=== PATIENT | male | born 1955 | race Caucasian/White ===

== ENCOUNTER 2018-05-04 22:35 | Inpatient (IN) | payer MEDICARE, MEDICAID ==
[~2018-05-04] VITALS: Ht 190.5 cm; Wt 110.6 kg
[2018-05-04 23:31] LABS: HEMATOCRIT 26.8 % (42.0-54.0); HEMOGLOBIN 8.8 g/dL (13.5-17.5); LYMPHOCYTES 7.8 % (15-50); MCH 30.6 pg (26.0-34.0); MCHC 32.8 g/dL (31.0-37.0); MCV 93.1 fL (80.0-100.0); MEAN PLATELET VOLUME 9.9 fL (7.4-10.4); NEUTROPHILS 82.7 % (40-80); PLATELET COUNT 260 10x3/uL (130-400); RBC 2.88 10x6/uL (4.20-6.10); RDW 13.6 % (11.5-14.5); WBC 10.4 10x3/uL (4.8-10.8)
[2018-05-04 23:51] LABS: ANION GAP 20.9 mmol/L (8-16); CALCIUM 7.4 mg/dL (8.5-10.1); CARBON DIOXIDE 24.5 mmol/L (21.0-32.0); CREATININE - SERUM 13.2 mg/dL (0.6-1.3); MAGNESIUM - SERUM 2.3 mg/dL (1.8-2.4); POTASSIUM - SERUM 5.4 mmol/L (3.5-5.1); TROPONIN-I 0.047 ng/mL (0.000-0.060)
[2018-05-05] VITALS (21 sets, daily range): BP systolic 139–192; BP diastolic 68–111; BMI 29.9
--- NOTE | 2018-05-05 00:09 | NUR ---
FSBS @ 2737, 343 DOCTOR NOTIFIED.
--- NOTE | 2018-05-05 00:45 | NUR ---
REPOSITIONED FOR COMFORT, TOLERATED WELL.
--- NOTE | 2018-05-05 04:00 | NUR ---
CATAPRES 0.1MG PO GIVEN, BP 195/85.
--- NOTE | 2018-05-05 04:45 | NUR ---
BP 190/85, HR 76.
--- NOTE | 2018-05-05 05:50 | NUR ---
PT RECEIVED TO UNIT VIA BED FROM ER. PT TRANSFERRED SELF TO ICU BED. CONNECTED TO STANDARD ICU PROTOCOL WITH ALL ALARMS SET VERIFED AND AUDIBLE AT NURSES STATION. PT NOTED TO HAVE LEFT ARM FISTULA, LEFT ARM RESERVE. RIGHT UPPER CHEST HEALING INCISION WITH RECENT PACEMAKER/DEFIB PLACED. LEFT LATERAL CHEST WITH OLD CT SITES WITH SUTURES IN PLACE. NOTE VERY LITTLE AIR MOVEMENT HEARD ON LEFT MID/LOWER LOBE. PT ON 4L N/C. SPO2 96-97%. PT NOTED TO HAVE HTN WILL TREAT ORDERED. SEE MAR. BED IN LOW POSITION. CALL LIGHT GIVEN TO PT AND UNIT ORIENTATION DONE SON AT BEDSIDE SECURITY WORD ESTABLISHED. QUESTIONS ANSWERED. PT STATED HE WOULD HAVE FAMILY CALL WITH LIST OF HOME MEDS LATER IN DAY. PT VERY AGREABLE AND COOPERATIVE.
--- NOTE | 2018-05-05 07:00 | NUR ---
ASSESSMENT COMPLETE PER FLOWSHEET. VOICES NO CO AT TIME.
[2018-05-05 07:22] LABS: BASOPHILS 0.2 % (0-2); EOSINOPHILS 3.2 % (0-7); HEMATOCRIT 27.2 % (42.0-54.0); HEMOGLOBIN 8.7 g/dL (13.5-17.5); IMMATURE GRANULOCYTES 0.3 % (0-5); LYMPHOCYTES 5.3 % (15-50); MCH 29.9 pg (26.0-34.0); MCV 93.5 fL (80.0-100.0); MEAN PLATELET VOLUME 10.6 fL (7.4-10.4); MONOCYTES 3.5 % (2-11); NEUTROPHILS 87.5 % (40-80); PLATELET COUNT 292 10x3/uL (130-400); RBC 2.91 10x6/uL (4.20-6.10); RDW 13.6 % (11.5-14.5)
[2018-05-05 08:05] LABS: ALBUMIN 2.8 g/dL (3.4-5.0); ALKALINE PHOSPHATASE 158 U/L (46-116); ALT (SGPT) 40 U/L (10-68); BILIRUBIN - TOTAL 0.52 mg/dL (0.2-1.3); CALCIUM 7.3 mg/dL (8.5-10.1); CARBON DIOXIDE 26.3 mmol/L (21.0-32.0); CHLORIDE - SERUM 98 mmol/L (98-107); CKMB 3.1 U/L (0.0-3.6); CREATINE KINASE 232 UL (21-232); CREATININE - SERUM 13.5 mg/dL (0.6-1.3); MAGNESIUM - SERUM 2.4 mg/dL (1.8-2.4); PROTEIN - SERUM 6.8 g/dL (6.4-8.2); SODIUM 139 mmol/L (136-145); UREA NITROGEN 81 mg/dL (7-18); eGFR NON AFRICAN AMERICAN 4 mL/min (90-120)
[2018-05-05 08:46] LABS: CALC OSMOLALITY 303 mosm/kg (275-300); GLUCOSE 139 mg/dL (74-106)
[2018-05-05 08:48] LABS: POTASSIUM - SERUM 6.3 mmol/L (3.5-5.1); TROPONIN-I 0.086 ng/mL (0.000-0.060)
--- NOTE | 2018-05-05 11:00 | NUR ---
CVL CONSENT OBTAINED.
--- NOTE | 2018-05-05 14:45 | NUR ---
JOYCE SIMONS AT BEDSIDE. CVL PLACED.
--- NOTE | 2018-05-05 19:00 | NUR ---
REPORT RECEIVED CARE ASSUMED INITIAL SHIFT ASSESSMENT COMPLETED SEE FLOWSHEET. PT CONTINUES TO BE MONITORED PER STANDARD ICU PROTOCOL WITH ALL ALARMS SET, VERIFIED AND AUDIBLE AT NURSES STATION. NOTE B/P ELEVATED. SEE MAR FOR MEDICATION DOCUMENTATION. BED IN LOW POSTION CALL LIGHT IN REACH. PT ABLE TO MAKE NEEDS KNOWN IVF AND IV LINES ARE CURRENT AND APPROPRIATLY LABELED. PT AWAKE AND VISITING FREELY WITH SON AT BEDSIDE, ORIENTATED X 4 SPEECH CLEAR.
--- NOTE | 2018-05-05 20:00 | NUR ---
PT SLEEPING SOUNDLY SNORING AND MOUTH BREATHING. SPO2 FELL TO 78% AND REMAINED THERE. INCREASED O2 TO 6L WITH ONLY SLIGHT IMPROVEMENT. PT AWAKEN AND IMMEDIATELY SPO2 98%. RT NOTIFIED OF NEED FOR HIFLOW N/C DUE TO THE MOUTH BREATHING TENDINCIES OF PT. RT BROUGHT AND PT PLACED ON THIS WITH POSITIVE RESULTS
--- NOTE | 2018-05-05 21:12 | MORECARE ---
CASE MANAGEMENT DISCHARGE SUMMARY PATIENT: TERESA MARTINEZ UNIT: [id number] ADM DATE: 05/05/18 AGE: 63 : 55 SEX: M ROOM/BED: D.2306 AUTHOR: MARTA HUTCHINS PHYSICIAN: REFERRING PHYSICIAN: MICKIE BEE MD DATE OF SERVICE: 05/05/18 Discharge Plan Patient Name: TERESA MARTINEZ [facility] [facility] 1955 Planned Disposition: Home Anticipated Discharge Date: Discharge Date: Expected LOS: Initial Reviewer: [email or web address] Initial Review Date: 05/05/2018 Generated: 05/05/18 10:12 pm Patient Name: TERESA MARTINEZ Page 78146 at 2111 All edits/amendments must be made on the electronic document DICTATION DATE: 05/05/182110 MARKETING SERVICES VICE PRESIDENT: JENNY 05/05/182110 RPT#: [id number] DC DATE: STATUS: ADM IN [facility] [address] [place] [address] END OF REPORT
--- NOTE | 2018-05-05 21:18 | MORECARE ---
CASE MANAGEMENT DISCHARGE SUMMARY PATIENT: TERESA MARTINEZ UNIT: [id number] ADM DATE: 05/05/18 AGE: 63 : 55 SEX: M ROOM/BED: D.2306 AUTHOR: MARTA HUTCHINS PHYSICIAN: REFERRING PHYSICIAN: MICKIE BEE MD DATE OF SERVICE: 05/05/18 Discharge Plan Patient Name: TERESA MARTINEZ [facility] : 1955 Planned Disposition: Home Anticipated Discharge Date: Discharge Date: Expected LOS: Initial Reviewer: [email or web address] Initial Review Date: 05/05/2018 Generated: 05/05/18 10:18 pm DCPIA - Discharge Planning Initial Assessment Updated by [email or web address]: Michelle Yuen on 05/05/18 9:13 pm * Is the patient Alert and Oriented? Yes * How many steps to enter\exit or inside your home? * PCP Dr Coley * Pharmacy [facility] * Preadmission Environment Home with Family * ADLs Independent * Equipment Walker * Other Equipment CANE * List name and contact numbers for known caregivers / representatives who currently or will assist patient after discharge: TERESA MARTINEZ JR - SON - [phone] * Verbal permission to speak to the caregivers and representatives has been obtained from the patient. Yes * Community resources currently utilized Other * Please name any agencies selected above. [facility] * Additional services required to return to the preadmission environment? No * Can the patient safely return to the preadmission environment? Yes * Has this patient been hospitalized within the prior 30 days at any hospital? Yes Last DP export: 05/05/18 8:12 p Patient Name: TERESA MARTINEZ Page 69903 at 2118 All edits/amendments must be made on the electronic document DICTATION DATE: 05/05/182117 INSURANCE COMPLIANCE ANALYST: JENNY 05/05/182117 RPT#: [id number] DC DATE: STATUS: ADM IN [facility] [address] [place] [address] END OF REPORT
--- NOTE | 2018-05-05 21:25 | MORECARE ---
CASE MANAGEMENT DISCHARGE SUMMARY PATIENT: TERESA MARTINEZ UNIT: [id number] ADM DATE: 05/05/18 AGE: 63 : 55 SEX: M ROOM/BED: D.2306 AUTHOR: LISET,DOC PHYSICIAN: REFERRING PHYSICIAN: MICKIE BEE MD DATE OF SERVICE: 05/05/18 Discharge Plan Patient Name: TERESA MARTINEZ Facility: [facility]:[place] : 1955 Planned Disposition: Home Anticipated Discharge Date: Discharge Date: Expected LOS: Initial Reviewer: [email or web address] Initial Review Date: 05/05/2018 Generated: 05/05/18 10:25 pm Comments DCP- Discharge Planning Updated by [email or web address]: Michelle Yuen on 05/05/18 8:[address] Patient Name: TERESA MARTINEZ Admission Status: ER Accout number: [id number] Admission Date: 05-05-2018 : 1955 Admission Diagnosis: Attending: MICKIE BEE Current LOS: 1 Anticipated DC Date: Planned Disposition: Home Primary Insurance: MEDICARE A & B Discharge Planning Comments: CM met with patient and son at bedside after obtaining verbal consent. Patient states he plans on returning home after discharge with his family. Patient states he will have family transport him home via private vehicle. Patient has dialysis MWF in [place] @ 6am. Patient's son inquired about home 02. CM explained that patients would have to qualify according to values. Patient worried about cost. CM instructed she check on cost if he qualified. Patient denies any discharge needs at this time. CM will continue to follow and assist as needed for discharge planning / needs. Oxide Furnace Tender: Michelle Yuen DCPIA - Discharge Planning Initial Assessment Updated by [email or web address]: Michelle Yuen on 05/05/18 9:13 pm * Is the patient Alert and Oriented? Yes * How many steps to enter\exit or inside your home? * PCP Dr Coley * Pharmacy [facility] * Preadmission Environment Home with Family * ADLs Independent * Equipment Walker * Other Equipment CANE * List name and contact numbers for known caregivers / representatives who currently or will assist patient after discharge: TERESA MARTINEZ - SON - [phone] * Verbal permission to speak to the caregivers and representatives has been obtained from the patient. Yes * Community resources currently utilized Other * Please name any agencies selected above. [facility] * Additional services required to return to the preadmission environment? No * Can the patient safely return to the preadmission environment? Yes * Has this patient been hospitalized within the prior 30 days at any hospital? Yes Last DP export: 05/05/18 8:18 p Patient Name: TERESA MARTINEZ Page 37490 at 212 All edits/amendments must be made on the electronic document DICTATION DATE: 05/05/182124 FURNACE CLERK: JENNY 05/05/182124 RPT#: [id number] DC DATE: STATUS: ADM IN [facility] [address] [place] [address] END OF REPORT
--- NOTE | 2018-05-05 23:00 | NUR ---
SHIFT REASSESSEMT COMPLETED SEE FLOWSHEET. NO SIGNIFICANT CHANGES. PT HAS BEEN SLEEPING WELL TONIGHT.
[2018-05-06] VITALS (17 sets, daily range): BP systolic 153–197; BP diastolic 73–94; Ht 190.5 cm; Wt 110.6 kg
--- NOTE | 2018-05-06 01:00 | NUR ---
NO CHANGES. RESP REG AND NONLABORED
--- NOTE | 2018-05-06 03:00 | NUR ---
SHIFT ASSESSMENT COMPLETED SEE FLOWSHEET. NO SIGNIFICANT CHANGE. PT HAS BEEN SLEEPING WELL
--- NOTE | 2018-05-06 05:00 | NUR ---
PT SLEEPING EASILY AWAKEN. NO C/O DENIES NEEDS
[2018-05-06 06:47] LABS: BASOPHILS 0.3 % (0-2); EOSINOPHILS 10.1 % (0-7); HEMATOCRIT 27.8 % (42.0-54.0); HEMOGLOBIN 8.7 g/dL (13.5-17.5); IMMATURE GRANULOCYTES 0.3 % (0-5); LYMPHOCYTES 4.3 % (15-50); MCH 29.6 pg (26.0-34.0); MCHC 31.3 g/dL (31.0-37.0); MCV 94.6 fL (80.0-100.0); MEAN PLATELET VOLUME 10.6 fL (7.4-10.4); MONOCYTES 5.2 % (2-11); NEUTROPHILS 79.8 % (40-80); PLATELET COUNT 264 10x3/uL (130-400); RBC 2.94 10x6/uL (4.20-6.10); RDW 13.8 % (11.5-14.5); WBC 14.8 10x3/uL (4.8-10.8)
[2018-05-06 07:00] LABS: ALBUMIN 2.5 g/dL (3.4-5.0); BILIRUBIN - TOTAL 0.47 mg/dL (0.2-1.3); CALCIUM 7.2 mg/dL (8.5-10.1); CARBON DIOXIDE 29.6 mmol/L (21.0-32.0); CREATININE - SERUM 11.2 mg/dL (0.6-1.3); PROTEIN - SERUM 6.5 g/dL (6.4-8.2)
--- NOTE | 2018-05-06 07:00 | NUR ---
ASSESSMENT COMPLETE PER FLOWSHEET. VOICES NO CO AT TIME.
[2018-05-06 07:01] LABS: ANION GAP 16.6 mmol/L (8-16); POTASSIUM - SERUM 5.2 mmol/L (3.5-5.1)
--- NOTE | 2018-05-06 09:16 | NUR ---
Nutrition follow-up: Diet: Renal ADA PO intake good Labs reviewed Wt: 236# RDN following.
--- NOTE | 2018-05-06 15:00 | NUR ---
REPORT CALLED TO JANAE LUIS. TRANSFER IN .
--- NOTE | 2018-05-06 19:32 | NUR ---
RESUMIMG PT CARE. PT IS LAYING IN BED WITH EYES CLOSED RESTING COMFORTABLY. FAMILY AT BEDSIDE. BED IN LOW POSITION WITH CALL LIGHT IN REACH. SIDE RAILS UP X2. WILL CONTINUE TO MONITOR PT AND FOLLOW PLAN OF CARE.
[2018-05-07] VITALS: BP 139/69
[2018-05-07 04:00] VITALS: BP 143/68
--- NOTE | 2018-05-07 04:00 | NUR ---
SKID ROAD WORKER AT BEDSIDE TO OBTAIN VITALS, CALL LIGHT IN REACH. WILL CONTINUE WITH PLAN OF CARE.
[2018-05-07 05:52] LABS: HEMATOCRIT 24.7 % (42.0-54.0); HEMOGLOBIN 7.9 g/dL (13.5-17.5); MCH 30.2 pg (26.0-34.0); MCV 94.3 fL (80.0-100.0); MEAN PLATELET VOLUME 9.7 fL (7.4-10.4); PLATELET COUNT 229 10x3/uL (130-400); RBC 2.62 10x6/uL (4.20-6.10); RDW 13.7 % (11.5-14.5); WBC 9.1 10x3/uL (4.8-10.8)
[2018-05-07 06:04] LABS: ANION GAP 15.9 mmol/L (8-16); CARBON DIOXIDE 30.2 mmol/L (21.0-32.0); CREATININE - SERUM 12.5 mg/dL (0.6-1.3); PHOSPHOROUS 7.8 mg/dL (2.5-4.9); POTASSIUM - SERUM 5.1 mmol/L (3.5-5.1)
[2018-05-07 06:06] LABS: CALCIUM 6.7 mg/dL (8.5-10.1)
--- NOTE | 2018-05-07 07:47 | MORECARE ---
CASE MANAGEMENT DISCHARGE SUMMARY PATIENT: TERESA MARTINEZ UNIT: [id number] ADM DATE: 05/05/18 AGE: 63 : 55 SEX: M ROOM/BED: D.2104 AUTHOR: LISET,DOC PHYSICIAN: REFERRING PHYSICIAN: MICKIE BEE MD DATE OF SERVICE: 05/07/18 Discharge Plan Patient Name: TERESA MARTINEZ Facility[facility]:[place] : 1955 Planned Disposition: Home Anticipated Discharge Date: Discharge Date: Expected LOS: Initial Reviewer: [email or web address] Initial Review Date: 05/05/2018 Generated: 05/07/18 8:47 am Comments DCP- Discharge Planning Updated by [email or web address]: Michelle Yuen on 05/05/18 8:[address] Patient Name: TERESA MARTINEZ Admission Status: ER Accout number: [id number] Admission Date: 05-05-2018 : 1955 Admission Diagnosis: Attending: MICKIE BEE Current LOS: 1 Anticipated DC Date: Planned Disposition: Home Primary Insurance: MEDICARE A & B Discharge Planning Comments: CM met with patient and son at bedside after obtaining verbal consent. Patient states he plans on returning home after discharge with his family. Patient states he will have family transport him home via private vehicle. Patient has dialysis MWF in [place] @ 6am. Patient's son inquired about home 02. CM explained that patients would have to qualify according to values. Patient worried about cost. CM instructed she check on cost if he qualified. Patient denies any discharge needs at this time. CM will continue to follow and assist as needed for discharge planning / needs. Form Setter: Michelle Yuen DCPIA - Discharge Planning Initial Assessment Updated by [email or web address]: Michelle Yuen on 05/05/18 9:13 pm * Is the patient Alert and Oriented? Yes * How many steps to enter\exit or inside your home? * PCP Dr Coley * Pharmacy [facility] * Preadmission Environment Home with Family * ADLs Independent * Equipment Walker * Other Equipment CANE * List name and contact numbers for known caregivers / representatives who currently or will assist patient after discharge: TERESA MARTINEZ - SON - [phone] * Verbal permission to speak to the caregivers and representatives has been obtained from the patient. Yes * Community resources currently utilized Other * Please name any agencies selected above. [facility] * Additional services required to return to the preadmission environment? No * Can the patient safely return to the preadmission environment? Yes * Has this patient been hospitalized within the prior 30 days at any hospital? Yes Last DP export: 05/05/18 8:25 p Patient Name: TERESA MARTINEZ Page 80993 at 0747 All edits/amendments must be made on the electronic document DICTATION DATE: 05/07/18746 SVP INNOVATION PARTNERSHIPS: JENNY 05/07/18746 RPT#: [id number] DC DATE: STATUS: ADM IN [facility] [address] [place] [address] END OF REPORT
[2018-05-07 07:53] LABS: EOSINOPHILS 10 % (0-7); LYMPHOCYTES 6 % (15-50); MONOCYTES 3 % (2-11); NEUTROPHILS 79 % (40-80); PLATELET ESTIMATE NORMAL
[2018-05-07 08:18] VITALS: BP 153/77
--- NOTE | 2018-05-07 08:28 | NUR ---
PT SITTING UP IN BED. REMOVED SUTURES FROM PREVIOUS, "CHEST TUBE INSERTION". SMALL RED AREA AROUND SITE NOTED. SCANT DRAINAGE. SON AT BEDSIDE. NO S/S OF ACUTE DISTRESS. CL IN PLACE.
--- NOTE | 2018-05-07 08:31 | MORECARE ---
CASE MANAGEMENT DISCHARGE SUMMARY PATIENT: TERESA MARTINEZ UNIT: [id number] ADM DATE: 05/05/18 AGE: 63 : 55 SEX: M ROOM/BED: D.2104 AUTHOR: LISETDOC PHYSICIAN: REFERRING PHYSICIAN: MICKIE BEE MD DATE OF SERVICE: 05/07/18 Discharge Plan Patient Name: TERESA MARTINEZ Facility: [facility]:[place] : 1955 Planned Disposition: Home Anticipated Discharge Date: 05/07/18 Discharge Date: Expected LOS: 2 Initial Reviewer: [email or web address] Initial Review Date: 05/05/2018 Generated: 05/07/18 9:31 am Comments DCP- Discharge Planning Updated by [email or web address]: Michael Samuels on 05/07/18 7:[address] Patient Name: TERESA MARTINEZ Encounter No: [id number] : 1955 Primary Insurance: MEDICARE A & B Anticipated DC Date: 05-07-2018 Planned Disposition: Home DCP follow-up note: CM MET WITH PT IN ROOM TO DISCUSS DISCHARGE NEEDS AND PLANNING. CM DISCUSSED AVAILABILITY OF HOME HEALTH, REHAB SERVICES AND MEDICAL EQUIPMENT. PT DENIES DISCHARGE NEEDS. SON HERE TO TRANSPORT HOME AT DISCHARGE. IMPORTANT MESSAGE FROM MEDICARE PROVIDED AND EXPLAINED. JEAN PIERRE Hoffman DCP- Discharge Planning Updated by [email or web address]: Michelle Yuen on 05/05/18 8:[address] Patient Name: TERESA MARTINEZ Admission Status: ER Accout number: [id number] Admission Date: 05-05-2018 : 1955 Admission Diagnosis: Attending: MICKIE BEE Current LOS: 1 Anticipated DC Date: Planned Disposition: Home Primary Insurance: MEDICARE A & B Discharge Planning Comments: CM met with patient and son at bedside after obtaining verbal consent. Patient states he plans on returning home after discharge with his family. Patient states he will have family transport him home via private vehicle. Patient has dialysis MWF in [place] @ 6am. Patient's son inquired about home 02. CM explained that patients would have to qualify according to values. Patient worried about cost. CM instructed she check on cost if he qualified. Patient denies any discharge needs at this time. CM will continue to follow and assist as needed for discharge planning / needs. Account Analyst: Michelle Yuen DCPIA - Discharge Planning Initial Assessment Updated by [email or web address]: Michelle Yuen on 05/05/18 9:13 pm * Is the patient Alert and Oriented? Yes * How many steps to enter\exit or inside your home? * PCP Dr Coley * Pharmacy [facility] * Preadmission Environment Home with Family * ADLs Independent * Equipment Walker * Other Equipment CANE * List name and contact numbers for known caregivers / representatives who currently or will assist patient after discharge: TERESA MARTINEZ - SON - [phone] * Verbal permission to speak to the caregivers and representatives has been obtained from the patient. Yes * Community resources currently utilized Other * Please name any agencies selected above. [facility] * Additional services required to return to the preadmission environment? No * Can the patient safely return to the preadmission environment? Yes * Has this patient been hospitalized within the prior 30 days at any hospital? Yes Coverage Notice Reviewer: [email or web address] Mejia Samuels Notice Issued Date-Time: 05/07/2018 8:20 Notice Type: IM Discharge Notice Notice Delivered To: Patient Relationship to Patient: Emergency Dept Tech Name: Delivery Method: HAND - Hand Delivered Mariam Days: Prior Verbal Notification: Recipient Understood Notice: Yes Recipient Signature: Yes Med Rec Note Co-signed by Attending: Coverage Notice Comment: Last DP export: 05/07/18 6:47 a Patient Name: TERESA MARTINEZ Page 38303 at 0831 All edits/amendments must be made on the electronic document DICTATION DATE: 05/07/18830 CLINICAL UNIT EDUCATOR: JENNY 05/07/18830 RPT#: [id number] DC DATE: STATUS: ADM IN [facility] [address] [place] [address] END OF REPORT
[2018-05-07] MEDS ORDERED: PHOSLO667 MG PO (14:06)
[2018-05-07] MEDS ORDERED: HUMULIN N100 U/ML SC (14:06)
[2018-05-07] MEDS ORDERED: NORVASC5 MG PO (14:06)
--- NOTE | 2018-05-07 15:33 | OP ---
PATIENT NAME: TERESA MARTINEZ MEDICAL RECORD: [id number] :55 LOCATION:D.M2 D.2104 ADMISSION DATE:05/05/18 SURGEON: PABLO DENNEY MD DATE OF OPERATION: 05/05/2018 ADDENDUM I was contacted by my nurse practitioner, Dolores Bae APN, that the central venous line appeared to be going retrograde up the right side of the neck. Indeed, I reviewed the chest x-ray and it appeared that the central line was probably going retrograde up the right internal jugular vein. I came to the patient's bedside. I sterilely prepped the central venous line. I cut the sutures to the central venous line. I was able to withdraw the central venous line until there was about 3 cm of central venous line left in the vein. I advanced an 0.035 Glidewire. Over the 0.035 Glidewire, I was able to advance the central line. We could see ectopy on the monitor, indicating that the Glidewire was in the right ventricle. I then sutured the central venous line in place with sutures times 3. All lumens were flushed easily and aspirated dark, nonpulsatile blood. A stat portable chest x-ray revealed adequate placement of the central venous line without radiographic evidence of complication. TRANSINT:[id number] Voice Confirmation ID: [id number] DOCUMENT ID: [id number] PABLO DENNEY MD at 1533 CC: [id number] DICTATION DATE: 05/06/18 1402 KETTLE WORKER: 05/06/18 1903 ADM IN [facility] [address] [place] [address]
--- NOTE | 2018-05-07 16:29 | NUR ---
DC INSTRUCTIONS AND EDUCATION GIVEN TO PT. DC CENTRAL LINE. APPLIED 4X4S AND OPSITE TO SITE. NO REDDNESS OR SWELLIHNG NOTED. NO S/S OF ACUTE DISTRESS. SON AT BEDSIDE.
--- NOTE | 2018-05-07 17:23 | NUR ---
TOOK PT DOWN BY WC. NO S/S OF ACUTE DISTRESS. SON TOOK ALL BELONGINGS.
--- NOTE | 2018-05-07 17:58 | NUR ---
ADDENDUM TO 1729. PT "UNDERSTANDS DC ORDERS AND SIGNED DC INFO".
--- NOTE | 2018-05-10 06:22 | DS ---
PATIENT:TERESA SIBLEY :55 MEDICAL RECORD: [id number] DISCHARGE SUMMARY ADMISSION DATE: 05/05/18 DISCHARGE DATE: 05/07/18 HISTORY: Mr. Sibley is a 63-year-old white male with end-stage renal disease, chronic dialysis in [place]. He missed dialysis on Thursday due to diarrhea. In the Emergency Room with shortness of breath and hyperkalemia and admitted for the above. HOSPITAL COURSE: The patient underwent emergent dialysis and following that, received transfusion x1. Blood sugars, blood pressures all improved with dialysis, and he was back to baseline at the time of discharge. DISCHARGE DIAGNOSES: 1. Hyperkalemia, resolved. 2. Volume overload due to missed dialysis, resolved. 3. End-stage renal disease. 4. Diabetes mellitus. 5. Hypertension. 6. Chronic noncompliance. PLAN: The patient will be discharged today. He will resume his home medications, home dialysis, and home diet. We will see him weekly in [place] and will remove stitches from his left axillary area from a previous surgery in [place]. TRANSINT:[id number] Voice Confirmation ID: [id number] DOCUMENT ID: [id number] PABLO ESQUEDA MD at 0622 CC: [id number] DICTATION DATE: 05/07/18 0754 MATCHING MACHINE OPERATOR: 05/07/18 0818 DIS IN 05/07/18 [place] [id number] [place] [address]
== END 2018-05-07 17:23 | disposition home or self-care (01) | DRG 291 ==
LOC: D.ER 22:35 → D.M2 05-05 00:36 → D.EDHOLD 05-05 00:36 → D.ICU 05-05 00:36 → D.M2 05-06 16:06
PROVIDERS: Family Medicine; Internal Medicine; Internal Medicine Nephrology; ADMIT Family Medicine
PROC: 5A1D70Z Performance of Urinary Filtration, Intermittent, Less than 6 Hours Per Day (ICD-10-PCS; 2018-05-05)
PROC: 0JH63XZ Insertion of Tunneled Vascular Access Device into Chest Subcutaneous Tissue and Fascia, Percutaneous Approach (ICD-10-PCS; principal; 2018-05-06)
PROC: 02HV33Z Insertion of Infusion Device into Superior Vena Cava, Percutaneous Approach (ICD-10-PCS; 2018-05-06)
PROC: B548ZZA Ultrasonography of Superior Vena Cava, Guidance (ICD-10-PCS; 2018-05-06)
DX: I13.2 Hypertensive heart and chronic kidney disease with heart failure and with stage 5 chronic kidney disease, or end stage renal disease (principal); N18.6 End stage renal disease; E87.70 Fluid overload, unspecified; E87.5 Hyperkalemia; E11.22 Type 2 diabetes mellitus with diabetic chronic kidney disease; I50.9 Heart failure, unspecified; Z99.2 Dependence on renal dialysis; K21.9 Gastro-esophageal reflux disease without esophagitis; E11.65 Type 2 diabetes mellitus with hyperglycemia; E11.21 Type 2 diabetes mellitus with diabetic nephropathy; I48.91 Unspecified atrial fibrillation; Z95.0 Presence of cardiac pacemaker; Z91.15 Patient's noncompliance with renal dialysis